=== PATIENT | female | born 1970 | race Caucasian/White ===

== ENCOUNTER 2016-12-16 11:37 | Day surgery (SDC) | payer OTHER ==
[~2016-12-16 11:37] MED LIST: COZAAR50 M1 PO; CYMBALTA30 M1 PO; DYAZIDE 37.5-21 EACH PO; FOLIC ACID1 M1 PO; NEURONTIN600 M1 PO; POTASSIUM99 M4 PO; PRILOSEC OTC20 M1 PO; PROBIOTIC1 EA10 PO; TOPAMAX25 M3 PO; TRAZODONE HCL50 M1 PO; VITAMIN D31000 UNI3 PO
[2016-12-16 12:26] LABS: BASO % 0.1 % (0-2); EOS % 0.1 % (0-7); HCT-HEMATOCRIT 39.7 % (34.0-49.0); HGB-HEMOGLOBIN 14.3 gm/dl (12.0-15.5); IMMATURE GRANULOCYTES ABSOLUTE 0.04 tho/cmm (0-0.03); IMMATURE GRANULOCYTES PERCENT 0.3 % (0-0.3); LYMPH % 19.3 % (20-45); LYMPH ABSOLUTE COUNT 2.3 tho/cmm (0.8-4.5); MCH (MEAN CORPUSCULAR HGB) 31.8 pg (28.0-32.0); MCV (MEAN CELL VOLUME) 88.4 fl (82.0-96.0); MEAN PLATELET VOLUME 10.4 cmc (9.4-12.4); MONO % 3.3 % (0-12); MONOCYTE ABSOLUTE COUNT 0.4 tho/cmm (0.0-1.2); NEUTROPHILS % 76.9 % (40-80); PLATELET COUNT 181 tho/cmm (150-450); RED BLOOD COUNT 4.49 mil/cmm (4.00-5.20); RED CELL DISTRIBUTION WIDTH 13.4 % (12.4-16.4); WHITE BLOOD COUNT 11.7 tho/cmm (4.0-10.0)
[2016-12-16 12:37] LABS: ANION GAP 16 mmol/L (0-20); BLOOD UREA NITROGEN 9 mg/dl (6-24); CALCIUM 9.6 mg/dl (8.5-10.5); CARBON DIOXIDE-VENOUS 27 mmol/L (22-32); CHLORIDE 96 mmol/l (96-110); GLUCOSE 103 mg/dL (70-110); SODIUM 136 mmol/L (135-145); eGFR VALUE FOR BLACK 69 mL/Min
[2016-12-16 12:50] LABS: POTASSIUM 2.7 mmol/L (3.7-5.1)
== END 2016-12-16 15:15 ==
LOC: SHSC 11:37 → ENDOS 13:10
PROVIDERS: Internal Medicine Gastroenterology
PROC: 0DBE8ZX Excision of Large Intestine, Via Natural or Artificial Opening Endoscopic, Diagnostic (ICD-10-PCS; principal; 2016-12-16)
PROC: 0DBB8ZX Excision of Ileum, Via Natural or Artificial Opening Endoscopic, Diagnostic (ICD-10-PCS; 2016-12-16)
PROC: 0DBL8ZX Excision of Transverse Colon, Via Natural or Artificial Opening Endoscopic, Diagnostic (ICD-10-PCS; 2016-12-16)
DX: D12.3 Benign neoplasm of transverse colon (principal); K64.8 Other hemorrhoids; I10 Essential (primary) hypertension; M79.7 Fibromyalgia; F17.200 Nicotine dependence, unspecified, uncomplicated; F32.9 Major depressive disorder, single episode, unspecified; Z98.890 Other specified postprocedural states